=== PATIENT | male | born 1965 | race Caucasian/White ===

== ENCOUNTER 2019-07-02 09:28 | Day surgery (SDC) | payer OTHER ==
[~2019-07-02] VITALS: Ht 167.6 cm; Wt 65.7 kg
[~2019-07-02 09:28] MED LIST: CETI10TA4 PO; LR 1,000 ML IV ONE
[2019-07-02 10:04] LABS: INR 0.96; PROTHROMBIN TIME 12.5 SECONDS (11.8-14.0)
[2019-07-02] MEDS ORDERED: BACITRACIN OINT 30GM As Ordered ONE (11:24)
[2019-07-02] MEDS ORDERED: LIDOCAINE 1% SDV INJ 30 ML VIAL As Ordered ONE (11:24)
[2019-07-02] MEDS ORDERED: BUPIVACAINE HCL 0.25% 30 ML VIAL As Ordered ONE (11:24)
[2019-07-02] MEDS ORDERED: dexameTHASONE 4 MG/ML 1ML VIAL (J1100) As Ordered ONE (11:30)
[2019-07-02] MEDS ORDERED: ONDANSETRON 4MG/2ML VIAL (J2405) As Ordered ONE (11:30)
[2019-07-02] MEDS ORDERED: LIDOCAINE 2% INJ 100 MG/5 ML SDV (FOR ANES.) As Ordered ONE (11:30)
[2019-07-02] MEDS ORDERED: PROPOFOL 200 MG/20 ML VIAL As Ordered ONE (11:30)
[2019-07-02] MEDS ORDERED: fentaNYL 100 MCG/2 ML INJECTION (J3010) As Ordered ONE (11:35)
[2019-07-02] MEDS ORDERED: ROCURONIUM BROMIDE 50 MG/5 ML VIAL As Ordered ONE (11:35)
[2019-07-02] MEDS ORDERED: MIDAZOLAM INJ 2 MG/2 ML VIAL (J2250) As Ordered ONE (11:36)
[2019-07-02] MEDS ORDERED: KETOROLAC 60 MG/2 ML VIAL (J1885) As Ordered ONE (12:48)
[2019-07-02] MEDS ORDERED: oxyCODONE 5MG TAB PO PRN (13:30)
[2019-07-02] MEDS ORDERED: PERCOCET 5MG/325MG TAB PO PRN (13:30)
[2019-07-02] MEDS ORDERED: ONDANSETRON 4MG/2ML VIAL (J2405) IV PRN (13:30)
[2019-07-02] MEDS ORDERED: fentaNYL 100 MCG/2 ML INJECTION (J3010) IV PRN (13:30)
[2019-07-02] MEDS ORDERED: LR 1,000 ML IV SCH (13:45)
--- NOTE | 2019-07-02 14:07 | RO ---
DATE OF PROCEDURE: 07/02/2019 PREPROCEDURE DIAGNOSIS: Left hydrocele. POSTPROCEDURE DIAGNOSIS: Left hydrocele. PROCEDURE: Left hydrocelectomy. SURGEON: Dr. Vernon Moe ELECTRICAL LINESWORKER: None. ANESTHESIA: General. OPERATIVE INDICATIONS: This is a 54-year-old male with a moderate sized left hydrocele. He was brought to the operating room today for the above listed procedure. DESCRIPTION OF PROCEDURE: The patient was brought to the operating room and general anesthesia was induced. Prophylactic antibiotics were infused. He was then placed in supine position and prepped and draped in the usual sterile fashion. At this point, an approximately 4 cm transverse incision was made over the left hemiscrotum. We then dissected down through the scrotal wall layers. The testicle was then delivered out of the scrotal sac inside the tunica vaginalis. The tunica vaginalis was then opened and clear fluid drained. Of note, the hydrocele was septated. All compartments of the hydrocele were then opened and the tunica vaginalis was excised. I then over sewed the edges of the tunica vaginalis using a running #3-0 Vicryl suture. Once that was done, I checked for hemostasis and any areas of bleeding were cauterized using the coagulation current. Once satisfied with hemostasis, the cavity was thoroughly irrigated. During this procedure, the vas deferens and the testicle were not injured. At this point, the left testicle was then delivered back to the left hemiscrotum in its normal anatomic position. I then began closing first with a running #3-0 chromic suture to close the dartos. The skin was then closed with interrupted #2-0 chromic sutures. Local anesthesia was then applied followed by dressings. This marked the conclusion of the procedure. The patient was then awakened from anesthesia and transported to the recovery room in stable condition. Estimated blood loss: 10 mL. Complications: None. Specimen: Left hydrocele sac. Plan: The patient will followup in the clinic in a few weeks for a postoperative visit.
[2019-07-02 14:25] VITALS: BP 152/88
== END 2019-07-02 14:29 | disposition home or self-care (01) ==
LOC: M SDC 09:28
PROVIDERS: ATTEND Urology
DX: N43.3 Hydrocele, unspecified (principal); K21.9 Gastro-esophageal reflux disease without esophagitis; Z79.899 Other long term (current) drug therapy
CPT/HCPCS: 36415; 55060; 85610; 88302; J0690; J1100; J1885; J2250; J2405; J3010

== ENCOUNTER → 2021-02-15 | Outpatient (REF) | payer OTHER ==
[~2021-02-15] MED LIST changes: -LR 1,000 ML IV ONE
[2021-02-15 11:29] LABS: APPEARANCE, URINE CLEAR (CLEAR); BACTERIA, URINE AUTO NEGATIVE (NEGATIVE); BILIRUBIN, URINE AUTO NEGATIVE (NEGATIVE); BLOOD, URINE BLOOD NEGATIVE (NEGATIVE); COLOR, URINE YELLOW (YELLOW); GLUCOSE, URINE (UA) AUTO NEGATIVE (NEGATIVE); KETONE, URINE AUTO NEGATIVE (NEGATIVE); LEUKOCYTE ESTERASE, URINE AUTO NEGATIVE (NEGATIVE); MUCUS, URINE SMALL (NEGATIVE); NITRITE, URINE AUTO NEGATIVE (NEGATIVE); PROTEIN, URINE AUTO NEGATIVE (NEGATIVE); RBC, URINE AUTO 0 /HPF (0-3); SPECIFIC GRAVITY URINE AUTO 1.016 (1.002-1.035); SQUAMOUS EPITHELIAL CELL UR AU 0 /HPF (0-6); UROBILINOGEN, URINE AUTO 0.2 mg/dL (0.0-2.0); WBC, URINE AUTO 1 /HPF (0-3)
== END ==
LOC: M SMT 09:55
PROVIDERS: ATTEND Nurse Practitioner Women's Health
DX: R97.20 Elevated prostate specific antigen [PSA] (principal)

== ENCOUNTER → 2021-07-11 | Outpatient (CLI) | payer OTHER ==
--- NOTE | 2021-07-11 15:47 | REPPI ---
INDICATION: ELEVATED PSA. COMPARISON: None. TECHNIQUE: Transrectal prostate sonography. FINDINGS: Trans rectal prostate sonography demonstrates unremarkable seminal vesicles. Prostate gland is heterogeneous, with calcifications and cystic changes noted. Glandular dimensions are measured at 4.4 x 3.0 x 5.0 cm with a calculated glandular volume of 34.6 ml. There is a 0.4 cm nodule in the right anterior mid gland. Transrectal sonographic guidance is provided to Dr. Moe who performed trans rectal ultrasound guided needle biopsy procedure. IMPRESSION: Transrectal prostate sonographic findings as above. <Electronically signed by Rahul Holman > 07/11/21 [id number]
== END ==
LOC: M PLAIMG 10:13
PROVIDERS: ATTEND Urology
DX: R97.20 Elevated prostate specific antigen [PSA] (principal)

== ENCOUNTER → 2022-09-19 | Outpatient (CLI) | payer OTHER ==
[~2022-09-19] MED LIST changes: +PROHANCE 279.3MG/ML 15ML VIAL As Ordered ONE
== END ==
LOC: M RAD 09:06
PROVIDERS: ATTEND Urology
DX: R97.20 Elevated prostate specific antigen [PSA] (principal); N40.0 Benign prostatic hyperplasia without lower urinary tract symptoms
CPT/HCPCS: 72197; A9576

== ENCOUNTER → 2022-10-02 | Outpatient (REF) | payer OTHER ==
[~2022-10-02] MED LIST changes: -PROHANCE 279.3MG/ML 15ML VIAL As Ordered ONE
== END ==
LOC: M SMT 13:07
PROVIDERS: ATTEND Urology
DX: R97.20 Elevated prostate specific antigen [PSA] (principal)

== ENCOUNTER → 2023-10-16 | Outpatient (CLI) | payer OTHER ==
[~2023-10-16] MED LIST changes: +PROHANCE 279.3MG/ML 5ML VIAL ONE
== END ==
LOC: M PLAIMG 10:33
PROVIDERS: ATTEND Urology
DX: R97.20 Elevated prostate specific antigen [PSA] (principal); N42.89 Other specified disorders of prostate
CPT/HCPCS: 72197; A9576

== ENCOUNTER → 2023-11-05 | Outpatient (REF) | payer OTHER ==
[~2023-11-05] MED LIST changes: -PROHANCE 279.3MG/ML 5ML VIAL ONE
== END ==
LOC: M SMT PRO 12:37
PROVIDERS: ATTEND Urology
DX: R97.20 Elevated prostate specific antigen [PSA] (principal)